=== PATIENT | female | born 1935 | race African-American/Black ===

== ENCOUNTER → 2020-01-07 08:11 | Outpatient (CLI) | payer MEDICARE, MEDICAID, SELFPAY | PROVIDERS: PCP Emergency Medicine; Visit Provider Emergency Medicine | DX: Z12.31 Encounter for screening mammogram for malignant neoplasm of breast (principal) ==

== ENCOUNTER → 2022-07-12 16:32 | Outpatient (CLI) | payer MEDICARE, MEDICAID, SELFPAY | PROVIDERS: PCP Emergency Medicine; Visit Provider Emergency Medicine | DX: U07.1 COVID-19 (principal) | CPT/HCPCS: C9803; U0003; U0005 ==

== ENCOUNTER 2022-12-02 10:41 | Emergency (ER) | payer MEDICARE, MEDICAID, SELFPAY ==
[2022-12-02] VITALS (7 sets, daily range): BP systolic 118–143; BP diastolic 68–86; PULSE 55–60; RESP 16–18; TEMP 36.5–36.8; O2SAT 96–100; BMI 25.6
--- NOTE | 2022-12-02 10:53 | HMH.EDGENADL ---
Discharge Plan Disposition Patient Disposition: er [facility] Prescriptions Prescriptions: No Action atorvastatin 20 mg Tablet 20 mg PO HS hydrocodone-acetaminophen 5-325 mg Tablet 1 tab PO Q8H PRN (Reason: Chronic Pain) lisinopril 20 mg Tablet 20 mg PO BID clopidogrel 75 mg Tablet 75 mg PO DAILY allopurinol 100 mg Tablet 100 mg PO DAILY amlodipine 10 mg Tablet 10 mg PO DAILY aspirin 81 mg Tablet,Chewable 81 mg PO DAILY mirtazapine 15 mg Tablet,Disintegrating 15 mg PO HS loratadine 10 mg Tablet 10 mg PO DAILY metoprolol tartrate 25 mg Tablet 12.5 mg PO BID Clinical Impressions Clinical Impression: Minor head injury, Compression fracture Discharge ED Provider: Tony Barrera General Adult HPI General Chief complaint: Fall Stated complaint: fall Time Seen by Provider: 12/02/22 10:53 History of Present Illness HPI narrative: 86-year-old female from [facility] was being given her meal tray today and fell forward out of her chair and hit her head. She is nonverbal at baseline and is at her clinical baseline according to the home from when she was sent. EMS was concerned about a possible left shoulder injury as well but the patient is unable to provide any history and history is therefore secondary limited to that. Related Data Home Medications Medication Instructions Recorded Confirmed allopurinol 100 mg tablet 100 mg PO DAILY Gout 12/02/22 12/02/22 amlodipine 10 mg tablet 10 mg PO DAILY High blood pressure 12/02/22 12/02/22 aspirin 81 mg chewable tablet 81 mg PO DAILY Heart health 12/02/22 12/02/22 atorvastatin 20 mg tablet 20 mg PO HS Cholesterol 12/02/22 12/02/22 clopidogrel 75 mg tablet 75 mg PO DAILY Blood thinner 12/02/22 12/02/22 hydrocodone 5 mg-acetaminophen 325 1 tab PO Q8H PRN Chronic Pain 12/02/22 12/02/22 mg tablet lisinopril 20 mg tablet 20 mg PO BID High blood pressure 12/02/22 12/02/22 loratadine 10 mg tablet 10 mg PO DAILY Allergy symptoms 12/02/22 12/02/22 metoprolol tartrate 25 mg tablet 12.5 mg PO BID High blood pressure 12/02/22 12/02/22 mirtazapine 15 mg disintegrating 15 mg PO HS Mood 12/02/22 12/02/22 tablet Allergies Allergy/AdvReac Type Severity Reaction Status Date / Time hydrochlorothiazide Allergy Verified 08/02/22 17:22 [From Diovan [facility]] valsartan Allergy Verified 08/02/22 17:22 [facility] Disclaimer: The information contained in this section may have been updated after the patient was seen, as this information can be updated by other users. Medical History Personal history of pulmonary embolism Personal history of transient ischemic attack (TIA), and cerebral infarction without residual deficits Social History Smoking Status: Never smoker alcohol intake: never current occupational status: disabled Travel in the last 8 weeks: None housing: alf ROS Obtained: Yes All systems reviewed & no additional complaints except as documented Physical Exam General General appearance: alert Head Head exam: other (Left frontal hematoma, no evidence of depressed skull fracture raccoon eyes or wilkinson sign) Neck Neck exam: Present normal inspection; Absent tenderness Chest Chest inspection: Present normal inspection and symmetric chest wall rise Respiratory Respiratory exam: Present normal lung sounds bilaterally; Absent respiratory distress Cardiovascular Cardiovascular exam: Present regular rate; Absent tachycardia Abdominal Exam Abdominal exam: Present soft; Absent tenderness Neurological Exam Neurological exam: Present alert and oriented X3 Medical Decision Making Julius Inquiry Pt receiving controlled substance: No Vital Signs: 12/02/22 10:42 12/02/22 11:00 12/02/22 11:31 Temperature 98.2 F Temperature Source Oral Pulse Rate 57 L 56 L Pulse Rat
--- NOTE | 2022-12-02 10:54 | CT_ITS ---
FINAL REPORT CLINICAL HISTORY: head injury fall FINDINGS: Axial images of the head were obtained without contrast. Coronal reformatted images were also obtained. This study was performed with techniques to keep radiation doses as low as reasonably achievable (ALARA). Individualized dose reduction techniques using automated exposure control or adjustment of mA and/or kV according to the patient's size were employed. Motion artifact is identified on many of the images. There is generalized age-appropriate atrophy. Periventricular low-attenuation areas are seen consistent with moderate chronic ischemic changes. There is ventriculomegaly consistent with the degree of atrophy. There is no evidence of intracranial hemorrhage or mass. There is no evidence of acute infarct. There is no evidence of shift of the midline structures. No fracture is identified. There is left frontal scalp hematoma. IMPRESSION: Atrophy and moderate periventricular chronic ischemic changes. No acute intracranial abnormality identified. Reviewed, Interpreted and Dictated by Chadwick Luque III, MD Transcribed by Libertad Albrecht Authenticated and [facility]
--- NOTE | 2022-12-02 10:54 | XR_ITS ---
FINAL REPORT CLINICAL HISTORY: possible left shoulder inj FINDINGS: Left shoulder Four views were obtained. The head obscures the upper thorax. There is mild bibasilar atelectasis or scar. There are degenerative changes of the left shoulder. IMPRESSION: Degenerative changes of the left shoulder. Mild bibasilar atelectasis or scar. Reviewed, Interpreted and Dictated by Chadwick Luque III, MD Transcribed by Libertad Albrecht Authenticated and . [facility]
--- NOTE | 2022-12-02 10:54 | CT_ITS ---
FINAL REPORT CLINICAL HISTORY: fall FINDINGS: Axial CT images of the cervical spine were obtained without contrast. Sagittal and coronal reformatted images were also obtained. This study was performed with techniques to keep radiation doses as low as reasonably achievable (ALARA). Individualized dose reduction techniques using automated exposure control or adjustment of mA and/or kV according to the patient's size were employed. Motion artifact is identified on many of the images. There is diffuse cervical thoracic kyphosis. There is a C6 compression fracture which appears chronic. No definite acute fracture is identified. There is partial fusion of C5 through C7. There is mild anterolisthesis of C4 on 5. Multilevel moderate and severe degenerative changes are identified. IMPRESSION: C6 compression fracture, appears chronic. No definite acute fracture. Multilevel moderate and severe degenerative changes. Reviewed, Interpreted and Dictated by Chadwick Luque III, MD Transcribed by Libertad Albrecht Authenticated and [facility]
--- NOTE | 2022-12-02 11:11 | PC.NURSE ---
HELPED RAD GIRL MOVE PT TO CT BED
--- NOTE | 2022-12-02 11:17 | PC.NURSE ---
HELPED RAD TO STRETCHER BED
--- NOTE | 2022-12-02 12:05 | PC.NURSE ---
checked on pt nothing needed at this time
== END 2022-12-02 13:40 ==
PROVIDERS: Emergency Provider Student in an Organized Health Care Education/Training Program; PCP Emergency Medicine
DX: S09.8XXA Other specified injuries of head, initial encounter (principal); Z86.73 Personal history of transient ischemic attack (TIA), and cerebral infarction without residual deficits; W07.XXXA Fall from chair, initial encounter
CPT/HCPCS: 70450; 72125; 73030; 99284; 99285